=== PATIENT | male | born 1980 | race Caucasian/White ===

== ENCOUNTER 2017-01-26 04:58 | Inpatient (IN) | payer OTHER ==
[2017-01-26] MEDS ORDERED: NS 1,000 ML IV ONE ×2 (05:05→05:34)
--- NOTE | 2017-01-26 05:10 | EDPHY ---
H & P HPI/ROS: HPI CHIEF COMPLAINT: Syncope while urinating HISTORY OF PRESENT ILLNESS: Patient is a very pleasant 36-year-old male, presents emergency room by EMS after he had a syncopal episode at home. Patient states that he felt a cramp in his right calf this woke him from sleep he decided to get up and use the bathroom. He walked to the bathroom and was urinating and felt very lightheaded. He denies dizziness, denies chest pain or shortness of breath. Denies palpitations. [place] like he was going to pass out and then subsequently did. He did strike his head and his left ear, additionally has pain the left hand from fall. He thinks he struck the counter. He additionally reports midline low cervical spine pain C6-C7 region. He denies any focal numbness or tingling or weakness. He denies chest pain or shortness of breath. He states he now feels fine. Of note patient reports that he is very healthy, he has a resting heart rate 35 -40. He states this is normal for him. He denies being ill recently. Denies nausea vomiting or diarrhea. Denies fever viral illness. States he had a normal day yesterday. He thinks he states well-hydrated yesterday. He has never had an episode of syncope. Past Medical History: Denies any medical problems. Past Surgical History: Denies any surgical history Social History: Denies daily use of drugs alcohol tobacco. Works at [employer]. Family History: Denies any family pertinent cardiac history premature cardiac , or cardiac arrhythmia ROS REVIEW OF SYSTEMS: A comprehensive 10 point review of systems is otherwise negative aside from elements mentioned in the history of present illness. Exam Constitutional appears well nontoxic, triage nursing summary reviewed, vital signs reviewed, awake/alert. Bradycardic Eyes normal conjunctivae and sclera, EOMI, PERRLA. HENT normal inspection, atraumatic, moist mucus membranes, no epistaxis, neck supple/ no meningismus, no raccoon eyes. Respiratory clear to auscultation bilaterally, normal breath sounds, no respiratory distress, no wheezing. Cardiovascular bradycardic, regular rhythm, no murmur, no edema, distal pulses normal. Gastrointestinal soft, non-tender, no rebound, no guarding, normal bowel sounds, no distension, no pulsatile mass. Genitourinary no CVA tenderness. Musculoskeletal no midline vertebral tenderness, full range of motion, no calf swelling, no tenderness of extremities, no meningismus, good pulses, neurovascularly intact. Skin pink, warm, & dry, no rash, skin atraumatic. Neurologic awake, alert and oriented x 3, AAOx3, moves all 4 extremities equally, motor intact, sensory intact, CN II-XII intact, normal cerebellar, normal vision, normal speech. Psychiatric normal mood/affect. Heme/Lymph/Immune no lymphadenopathy. Differential Diagnosis: Includes includes but is not limited to in a particular order micturition syncope, orthostatic hypertension leading to syncope, dehydration, electrolyte disturbance, cardiac arrhythmia, bradycardia leading to syncope. Medical Decision Making: Plan for patient IV establishment IV fluid bolus, check orthostatic vital signs, EKG, troponin, basic blood work, CT head and neck due to trauma and neck pain. X-ray of his left hand. And re-evaluate. Re-evaluation: EKG interpretation by me on record in [employer] system. Impression time of EKG 5:10 a.m., this is sinus bradycardia rate of 36. First-degree AV block NJ interval 213. LVH present. I do not appreciate acute ischemic change on this EKG. 0537: Re-evaluated the patient was called by the nurse to come and see him as he feels lightheaded again. His blood pressure is currently 88 /38. This is while he is sitting up. Not on his side. Heart rate is 36. Given the hypotension you will get a 2nd L fluid at this time. We will closely monitor blood pressure and heart rate. He has not had another syncopal episode he did get lightheaded with this blood pressure this low. Of note he has been sick he denies any fever recent illness. He appears otherwise well nontoxic. 0621: Spoke with Dr. Aaron Gonzalez, reviewed the EKG at 610, Believes this to be A/V Weichbach. Mobitz Type 1. 0632: Rhythm strip reviewed by myself. I believe this is Mobitz type 1. Will plan on admitting the patient to the hospital for bradycardia symptomatic in the setting of hypotension and syncope. Will have Cardiology see this patient. 0638: Spoke Dr. Rosalie Harrison who agrees to admit. Additionally does this patient has a positive troponin. He denies any chest pain or shortness of breath. He has not had a viral illness. Will admit him for trauma tree monitoring, for bradycardia positive troponin will have Cardiology see him. Will need an echocardiogram. ED x-ray of the left hand reviewed by myself. No fracture. ED x-ray chest one view I do not appreciate cardiomegaly or pulmonary infiltrate. Unremarkable chest x-ray reviewed by me. Source: Patient, EMS Constitutional: Initial Vital Signs Temperature (C) 36.3 C 01/26/17 05:03 Heart Rate 38 L 01/26/17 05:03 Respiratory Rate 14 01/26/17 05:03 Blood Pressure 116/43 L 01/26/17 05:03 O2 Sat (%) 100 01/26/17 05:03 O2 Delivery Mode Room Air Allergies/Adverse Reactions: No Known Allergies Allergy (Unverified 01/26/17 05:07) Home Medications: Medication Instructions Recorded NK [No Known Home Meds] 01/26/17 Medical Decision Making - Data Points Laboratory Results: Laboratory Results 01/26/17 05:30 01/26/17 05:30 Medications Given: Discontinued Medications Sodium Chloride (Ns) 1,000 mls @ 0 mls/hr IV EDNOW ONE; Wide Open PRN Reason: Protocol Stop: 01/26/17 05:06 Last Admin: 01/26/17 05:32 Dose: 1,000 mls Sodium Chloride (Ns) 1,000 mls @ 0 mls/hr IV ONCE ONE PRN Reason: Wide Open Stop: 01/26/17 05:35 Last Admin: 01/26/17 05:36 Dose: 1,000 mls Lidocaine HCl (Lidocaine Hcl 1%) 0 - 300 mg SC ONCALL ONE Stop: 01/27/17 16:31 Last Admin: 01/27/17 16:50 Dose: Not Given Departure - Departure Disposition: [facility] In[facility] Acute Clinical Impression: Bradycardia Syncope Qualifiers: Syncope type: unspecified Qualified Code(s): R55 - Syncope and collapse Fall Qualifiers: Encounter type: initial encounter Qualified Code(s): W19.XXXA - Unspecified fall, initial encounter Hand contusion Qualifiers: Encounter type: initial encounter Laterality: left Qualified Code(s): S60.222A - Contusion of left hand, initial encounter Condition: Good
--- NOTE | 2017-01-26 05:15 | CPEKG ---
Heart Rate: 36 RR Interval: 1667 P-R Interval: 213 QRSD Interval: 98 QT Interval: 568 QTC Interval: 440 P [place]: -31 QRS [place]: 46 T Wave [place]: 28 EKG Severity - ABNORMAL ECG - EKG Impression: SINUS BRADYCARDIA EKG Impression: PROBABLE LEFT VENTRICULAR HYPERTROPHY EKG Impression: ANTEROLATERAL INFARCT, RECENT Electronically Signed By: Gualberto Lyon 26-Jan-2017 19:48:46
[2017-01-26 05:39] LABS: % IMMATURE GRANULYOCYTES 0.1 % (0.0-1.1); ABSOLUTE IMMATURE GRANULOCYTES 0.01 10^3/uL (0.00-0.10); ADD DIFF? NO; ADD MORPH? NO; ADD SCAN? NO; ATYPICAL LYMPHOCYTE FLAG 0 (0-99); FRAGMENT RBC FLAG 0 (0-99); HEMATOCRIT 43.9 % (40.0-51.0); HEMOGLOBIN 15.4 g/dL (13.7-17.5); LEFT SHIFT FLG 0 (0-99); LIPEMIA HEMOLYSIS FLAG 90 (0-99); MEAN CELL HEMOGLOBIN 29.8 pg (27.9-34.1); MEAN CELL HEMOGLOBIN CONCENTR. 35.1 g/dL (32.4-36.7); MEAN CELL VOLUME 85.1 fL (81.5-99.8); MEAN PLATELET VOLUME 9.3 fL (8.7-11.7); PLATELET CLUMPS FLAG 0 (0-99); PLATELET COUNT 203 10^3/uL (150-400); RED BLOOD CELL COUNT 5.16 10^6/uL (4.40-6.38); RED CELL DISTRIBUTION WIDTH 12.5 % (11.5-15.2)
[2017-01-26 05:48] LABS: PROTIME(PATIENT) 13.4 SEC (12.0-15.0)
[2017-01-26 05:49] LABS: APTT 22.7 SEC (23.0-38.0)
[2017-01-26 06:09] LABS: ALANINE AMINOTRANSFERASE 44 IU/L (21-72); ALBUMIN 3.9 g/dL (3.5-5.0); ALKALINE PHOSPHATASE 60 IU/L (38-126); ANION GAP 12 mEq/L (8-16); ASPARTATE AMINOTRANSFERASE 31 IU/L (17-59); BILIRUBIN,TOTAL 0.6 mg/dL (0.1-1.4); BILIRUBIN-CONJUGATED 0.2 mg/dL (0.0-0.5); BILIRUBIN-UNCONJUGATED 0.4 mg/dL (0.0-1.1); CALCIUM 9.4 mg/dL (8.5-10.4); CARBON DIOXIDE 28 mEq/l (22-31); CHLORIDE 103 mEq/L (97-110); CREATININE 1.2 mg/dL (0.7-1.3); GLOMERULAR FILTRATION RATE > 60; GLUCOSE 107 mg/dL (70-100); MAGNESIUM 1.8 mg/dL (1.6-2.3); POTASSIUM 3.9 mEq/L (3.5-5.2); SODIUM 143 mEq/L (134-144); TOTAL PROTEIN 6.7 g/dL (6.3-8.2)
[2017-01-26 06:21] LABS: TROPONIN I 0.075 ng/mL (0.000-0.034)
[2017-01-26] MEDS ORDERED: diphenhydrAMINE 25 MG CAP PO PRN (06:40)
[2017-01-26] MEDS ORDERED: HYDROmorphONE/DILAUDID 1 MG/ML INJ IVP PRN (06:40)
[2017-01-26] MEDS ORDERED: ACETAMINOPHEN 325 MG TAB PO PRN (06:40)
[2017-01-26] MEDS ORDERED: ONDANSETRON 4 MG/2 ML VIAL IVP PRN (06:40)
[2017-01-26] MEDS ORDERED: NS 1,000 ML IV SCH (06:45)
--- NOTE | 2017-01-26 08:17 | CPEKG ---
Heart Rate: 43 RR Interval: 1395 QRSD Interval: 96 QT Interval: 580 QTC Interval: 491 P [place]: -35 QRS [place]: 53 T Wave [place]: 30 EKG Severity - ABNORMAL ECG - EKG Impression: COMPLETE AV BLOCK, A-RATE 46 EKG Impression: PROBABLE LEFT VENTRICULAR HYPERTROPHY EKG Impression: ANTEROLATERAL INFARCT, RECENT EKG Impression: PROLONGED QT INTERVAL Electronically Signed By: Gualberto Lyon 26-Jan-2017 19:48:46
--- NOTE | 2017-01-26 08:19 | GHP ---
[f rep st] HISTORY AND PHYSICAL DATE OF ADMISSION: 01/26/2017 SOURCE: The patient provides history, appears reliable. His , who is a family court justice , is at bedside, also supplements details. Case discussed with the ED provider. CHIEF COMPLAINT: Syncope. HISTORY OF PRESENT ILLNESS: This is a pleasant, 36-year-old gentleman with no significant past medic al history, who is otherwise healthy with the exception of reporting a resting heart rate in the 30s to 40s, who presents to the emergency department today following a syncopal episode at home. Patient states that he woke up in the middle of night with a severe right calf cramp which he has intermitte ntly on either left or right leg. The patient denies any chest pain, palpitations. He does think he had a little bit of lightheadedness before he passed out. He thinks he struck the right side of his face on the bathroom counter before falling to the ground. The patient was otherwise in his usual [facility] with a recent viral type illness approximately 3 weeks ago, but no recent fevers, chil ls, shortness of breath, cough, or other complaints. The patient's heard the patient fall to th e floor and tried to open the small bathroom door. However, patient had fallen behind the door and i t took a few minutes before she was able to open the door and check for pulses. At that point, the p atient was starting to wake up and she thinks he may have been unconscious for 1-2 minutes. EMS was called. The patient arrived to the emergency department. The patient was noted to be bradycardic, i n the low to mid 30s. He also had a transient low blood pressure from the 110s down to the 80 systol ic. Orthostatic blood pressures were negative. The patient did not have any hypoxia. REVIEW OF SYSTEMS: Remainder of the review of systems is significant for left hand pain and limited range of motion with swelling, particularly in the 4th left digit. The patient reports some swelling and decreased range of motion. Injury to right face. NEURO: The patient denies any seizure activi ty. denies noting any tonic-clonic activity. The patient did have his left wrist angulated whe n she found him in the bathroom, but again no tonic or clonic activity was noted. No bladder or dajuan l incontinence. Review of systems negative except as noted above. ALLERGIES: No known drug allergies. MEDICATIONS: Patient does not take any prescription or dcwd-dal-zyycybn medications or supplements. PAST MEDICAL HISTORY: Overall unremarkable. The patient does report a resting heart rate in the mid to low 30s. PAST SURGICAL HISTORY: Patient had right hand surgery. FAMILY HISTORY: Patient denies any cardiac disease. No diabetes, hypertension. SOCIAL HISTORY: Patient currently employed at . 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 He does not smoke or do drugs. He drinks rare alcohol, last use was a month ago. No illicit drugs or marijuana use. CODE STATUS: Full. to be proxy if needed. PHYSICAL EXAMINATION: VITAL SIGNS: Upon arrival to the emergency department, initially blood pressu re 116/43, heart rate 38, respiratory rate 14, O2 sat 100% on room air with temperature 36.3. Orthos tatic blood pressures reviewed in EMR and without significant elevation in blood pressure or heart ra te. The patient with a transient systolic blood pressure in the 80s and lowest heart rate in the low 30s. Current vital signs at time of interview, blood pressure was 124/76, heart rate 46, respirator y rate 16, O2 sat 100% on room air. GENERAL: No acute distress. Very pleasant adult gentleman is s itting up comfortably in bed. His is at bedside. HEENT: Head normocephalic, atraumatic. EYES : Extraocular muscles grossly intact. Pupils equal, round, reactive to light bilaterally and symmet dylan. No scleral icterus or conjunctival injection. ENT: Mucous membranes are moist. No oropharyng eal erythema or exudates. NECK: Supple. Trachea midline. CV: Bradycardic in the 30s to 40s. Limi adriane exam secondary to the heart rate, but no appreciable murmurs or rubs or gallops. RESPIRATORY: L ungs are clear to auscultation bilaterally. No wheezes, rales, or rhonchi appreciated, unlabored patt athing. ABDOMEN: Positive bowel sounds, soft, nontender to palpation. No rebound, guarding or mass es. : No Gotti in place. No suprapubic tenderness to palpation. EXTREMITIES: The patient moves all extremities. He does have some decreased range of motion in the cushion padder of the left hand and some swelling at the proximal 4th digit. The patient also with some decreased capillary refill. NEURO: Cranial nerves grossly intact. No facial drooping. Patient awake, alert, and oriented x4. PSYCH: W ithout any anxiety or agitation. Thought process, content and questions are appropriate. LABORATORY STUDIES: WBC 6.80, hemoglobin and hematocrit 15.4 and 43.9, MCV of 85.1, platelet count i s 203, no bands. PT is 13.4, INR is 1.00, PTT is 22.7. D-dimer 0.44. Sodium is 143, potassium 3.9, chloride is 103, CO2 is 28, anion gap 12, BUN 27, creatinine 1.2, GFR greater than 60, glucose 107, calcium 9.4, magnesium 1.8, total bilirubin 0.6, conjugated bilirubin 0.2, ALT 44, AST is 31, alkalin e phosphatase is 60. CK is pending. Troponin 0.075. BTNP is 50. Total protein 6.7, albumin 3.9. STUDIES: EKG reviewed myself, shows sinus bradycardia in the 30s, probable LVH with second-degree AV block. QTc is 440. Q-waves in the anterolateral leads. Chest x-ray: Image reviewed myself, report is still pending. Appears clear. No acute infiltrates o r processes. Cervical spine CT: Preliminary report negative for fracture. CT head without contrast: Final report pending. Reported normal. No fractures, no bleeds. Hand x-ray: No fracture or dislocation. Reviewed with patient and his at bedside. ASSESSMENT AND PLAN: A very pleasant 36-year-old gentleman who presents following a syncopal episode and bradycardia with some hypotension. 1. Syncope. The patient has evidence of a second-degree AV block Mobitz type 1. Cardiology was con sulted from the emergency department. They have reviewed the EKG. Will evaluate the patient this mo rning. An echocardiogram has been ordered. Patient will be monitored continuously on telemetry. Re assured the patient and particularly his that services available here at the hospital include Ca rdiology and no acute need for transfer. The patient currently evaluated with stable vital signs. N o need for urgent consultation which has already been discussed and case reviewed with Cardiology. T he patient to notify nursing if he develops any lightheadedness, chest pain or shortness of breath or changes in his symptoms. 2. Elevated troponin. Etiology for this slight rise is unclear. The patient was hypotensive with a significant bradycardia. He also had a syncopal episode or suspicion for acute coronary syndrome as patient is without any chest pain, could be stress induced following a syncopal episode or related t o his above. Will trend and repeat later this morning. 3. Hypotension, transiently improved. The patient without symptoms reported during that episode. Joseph jimenez has received IV fluid supplementation. Will continue IV supplementation through the day. 4. Left hand pain related to patient's syncopal episode and injury. No evidence of fracture on the x-ray. Supportive care, ice p.r.n. and Tylenol. 5. Head injury related to syncope. CT head and neck were negative for any acute fractures and no bl eed on CT head. Patient denies any acute pain at this time. 6. Leg cramping. Will check electrolytes and replace if needed. If patient continues to have compl aints of lower extremity cramping, may consider evaluating iron studies on an outpatient basis. 7. Fluid, electrolyte, nutrition. Patient will be made n.p.o. until he is evaluated by Cardiology a t this time. We will continue with IV fluids for supplementation given patient's recent low blood pr essure. His BUN is also slightly increased. He reports staying well hydrated. 8. Prophylaxis. SCDs. Holding anticoagulation at this time. Patient overall is low risk for DVT. 9. Code status is full. to be MD HURTADO if needed. 10. Disposition: Patient has been admitted to inpatient status given the 2nd degree block and need for further workup. /[id number]/MODL
--- NOTE | 2017-01-26 08:34 | ECHO ---
[email or web address] [address] [address] Main: [phone] Fax: [email or web address] Echocardiogram Name: RHODA PARIKH MR#: [id number] Study Date: 01/26/2017 Study Time: 07:36 AM Date of : 1980 Age: 36 year(s) Height: 177.8 cm (70 in.) Weight: 74.84 kg (165 lb.) BSA: 1.92 m2 Gender: Male Examination: Echo Indication: Syncope/bradycardia/mobitz 1 Image Quality: Contrast: Requested by: Rosalie Harrison BP: 122 mmHg/66 mmHg Heart Rate: Rhythm: Indication: Syncope/bradycardia/mobitz 1 Procedure Staff Supervising Film Or Videotape Editor: Davina Marquez Reading Physician: Piero Vera Requesting Provider: Conclusions: Moderately dilated left ventricle. The ejection fraction is estimated to be 65-70 %. Normal size right ventricle. The left atrium is mildly dilated. The right atrium is moderately dilated. Bicuspid aortic valve. Moderate aortic valve regurgitation is present. No aortic valve stenosis is present. The pulmonary artery pressure is normal. Mildly dilated ascending aorta measuring 4.6 cm. Measurements: Chambers Valvular Assessment AV/MV Valvular Assessment TV/PV Normal Normal Normal Name Value Range Name Value Range Name Value Range Ao Roseann (MM): 3.7 cm (2.2 cm-3.7 AV Vmax: 1.88 m/s (1 m/s-1.7 TR Vmax: 2.22 mm/s ( - ) cm) m/s) TR PGmax: 20 mmHg ( - ) IVSd (2D): 1.0 cm (0.6 cm-1.1 AV maxP mmHg ( - ) syst. PAP: 25 mmHg ( - ) cm) AV meanP mmHg ( - ) LVDd (2D): 6.5 cm (4.2 cm-5.9 AR (PHT): 679 ms ( - ) cm) MV E Vmax: 1.07 m/s ( - ) LVDs (2D): 4.3 cm (2.1 cm-4 MV A Vmax: 0.50 m/s ( - ) cm) MV E/A: 2.14 ( - ) LVPWd (2D): 0.9 cm (0.6 cm-1 cm) LVEF (MOD4): 66 % (>=55 %) EF Range: 65-70 % Continued Measurements: Chambers Valvular Assessment AV/MV Valvular Assessment TV/PV Patient: RHODA PARIKH Study Date: 01/26/2017 Page 1 of 2 07:36 AM Name Value Name Value Name Value LADs: 4.0 cm MV E/E' Septal: 13.50 CVP (est.): 5 mmHg LADs Lon.2 cm MV E/E' Lateral: 8.90 LA Area: 22.3 cm2 AR Vmax: 4.26 cm/s TAPSE: 2.7 cm Additional Vessels Name Value Ao Ascendin.6 cm Inferior Vena Cava: 1.8 cm Findings: Left Ventricle: Moderately dilated left ventricle. No LV hypertrophy. Normal global systolic LV function. The ejection fraction is estimated to be 65-70 %. No regional wall motion abnormality. Right Ventricle: Normal size right ventricle. Normal RV function. Left Atrium: The left atrium is mildly dilated. Normal appearing atrial septum. Right Atrium: The right atrium is moderately dilated. Mitral Valve: The mitral valve is normal in appearance and function. Trivial mitral valve regurgitation. Aortic Valve: Bicuspid aortic valve. Moderate aortic valve regurgitation is present. No aortic valve stenosis is present. Tricuspid Valve: The tricuspid valve is normal in appearance and function. Mild tricuspid regurgitation is present. The pulmonary artery pressure is normal. Pulmonic Valve: The pulmonic valve is normal in appearance and function. Trivial pulmonic valve regurgitation. Aorta: The aorta is normal. Mildly dilated ascending aorta measuring 4.6 cm. Pericardium: No pericardial effusion. (No Signature Object) Patient: RHODA PARIKH Study Date: 01/26/2017 Page 2 of 2 07:36 AM [id number]
[2017-01-26] MEDS ORDERED: IOPAMIDOL (ISOVUE 370) 100 ML BTL IV ONE (08:36)
[2017-01-26 12:43] LABS: C-REACTIVE PROTEIN < 5.0 mg/L (<10.0)
--- NOTE | 2017-01-26 12:54 | PDMN ---
Medical Necessity Medical necessity: Patient meets inpatient criteria per physician note and [facility] Cardiology GRG vs Supraventricular Arrhythmias (syncopal episode w/bradycardia into the 30's and initial hypotension; 2nd degree AV block, Mobitz type 1 on EKG , troponins elevated; anticipated LOS > 2 midnights for ongoing bradycardia into the 30's; elevated troponins, cardiology consult, continued IV fluids while NPO for poss interventions.)
--- NOTE | 2017-01-26 17:04 | HOSPPROG ---
Hospitalist Progress Note Assessment/Plan: Syncope - This may have been a vagal event with the micturitional history. 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 Also consider volume depletion / orthostasis as a factor. EKG showed Type 1 Mobitz / Wenkebach, likely benign. Sinus dior on telemetry, personally reviewed and interpreted. Discussed with Dr. Marie. 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 No e/o dissection. -outpt f/u Moderate AR - congenital bicuspid valve. cards is following. Elevated troponin - ?demand ischemia in setting of bradycardia / strain. Trop is flat with slight decline from 0.08 to 0.07. He is chest pain free. Doubt ACS. -cont to trend Full code Dispo - 0bs Subjective: Pt feels well. No CP, SOB, dizziness, or palpitations. Objective: Vital Signs Temp Pulse Resp BP Pulse Ox 36.6 C 45 L 14 119/62 94 01/26/17 16:34 01/26/17 16:34 01/26/17 16:34 01/26/17 16:34 01/26/17 16:34 01/25/17 01/26/17 01/27/17 05:59 05:59 05:59 Intake Total 1999 Balance 1999 PT 13.4 SEC (12.0-15.0) 01/26/17 05:30 INR 1.00 (0.83-1.16) 01/26/17 05:30 - Physical Exam Constitutional: no apparent distress Eyes: PERRL Ears, Nose, Mouth, Throat: moist mucous membranes Cardiovascular: regular rate and rhythym, systolic murmur Respiratory: no respiratory distress Gastrointestinal: normoactive bowel sounds, soft, non-tender abdomen Skin: warm Musculoskeletal: full muscle strength Neurologic: AAOx3 Psychiatric: interacting appropriately ICD10 Worksheet Patient Problems: Problems Problem Status Onset Bradycardia Acute Fall Acute Hand contusion Acute Syncope Acute
--- NOTE | 2017-01-26 17:11 | GCON ---
[f rep st] CONSULTATION CARDIOLOGY CONSULTATION DATE OF CONSULTATION: 01/26/2017 CHIEF COMPLAINT: Syncope. HISTORY OF PRESENT ILLNESS: We were asked by Dr. Tolentino to visit with the patient. The patient is a healthy 36-year-old male with no known cardiovascular history. He does have a history of vasovaga l syncope in the past. He was in his usual state of good health yesterday. Early this morning he wo ke up in the middle of the night with a leg cramp. He then got up to urinate. After urinating, he h ad sudden onset of a sensation of lightheadedness and then had syncope in the bathroom. His was able to get to him quickly and by then he was arousable. He did not have incontinence or any tongue biting. EMS was called and he was transported to the emergency department. In the department, he was bradycardic with some episodes of junctional escape and some episodes of si nus bradycardia, as well as periods of type 1 second-degree heart block. Troponin was borderline sonal vated at 0.07 and, therefore, he is being admitted for further observation. The patient denies preceding chest pain or ongoing chest pain at the moment. He denied shortness of breath or palpitations. He did have a viral infection 2 or 3 weeks ago, but has been otherwise feeli ng well. No significant alcohol intake, normal p.o., no illicit drugs. REVIEW OF SYSTEMS: A full 10-point review of systems was performed and was negative, except that whi ch is outlined in the history of present illness. ALLERGIES: No known drug allergies. PAST MEDICAL HISTORY: None of note up until today when he was diagnosed with bicuspid aortic valve o n echocardiogram and ascending aortic dilation. OUTPATIENT MEDICATIONS: None. SOCIAL HISTORY: The patient is and his is at the bedside. They have a 6-month-old daug hter. He is a digital computer operator at . He does not smoke cigarettes. He drinks alcohol in moderation. He denies illicit drugs or use of significant [id number] supplementation. FAMILY HISTORY: Negative for premature coronary disease or sudden cardiac . PHYSICAL EXAMINATION: VITAL SIGNS: Initial blood pressure was 116/43, then dropped to 88/38, and rrently 120/78. Heart rate has been in the 30s to 50s. Oxygen saturation is 97% on room air. Respi ratory rate is 16. GENERAL: Well-appearing young male, in no acute distress. HEENT: Sclerae clear and free of jaundice. Mucous membranes moist. CARDIOVASCULAR: JVP is less than 10. Carotids equa l and 2+ without bruit. Regular rate and rhythm with a 2/6 holosystolic murmur at the left lower christine rnal border and at the apex. LUNGS: Clear to auscultation bilaterally without wheezes, rhonchi, or rales. ABDOMEN: Soft, nontender, nondistended. No bruits, masses, or hepatosplenomegaly. EXTREMIT IES: Warm, well perfused without cyanosis, clubbing, or edema. NEURO: Alert and oriented x3 withou t gross focal neurologic deficits. LABORATORY DATA: CBC is normal. D-dimer negative. INR normal. Comprehensive metabolic panel jeff l except for BUN of 27, glucose of 107, and troponin 0.075 and 0.08. CK 116. Serial EKGs reviewed by me. Sinus bradycardia, some type 1 second-degree AV block, some junctional e scape. No ischemic ST abnormalities. Echocardiogram reviewed by me, moderately dilated left ventricle with normal LV systolic function. R V is normal in size and systolic function. The aortic valve is bicuspid with at least moderate, if n ot moderately to severe, aortic regurgitation. Ascending aorta is dilated at 4.[address] of the aorta reviewed by me and discussed with Dr. Rubio, shows aneurysmal dilation of the ascendi ng aorta, 4.4 cm. No dissection. No pericardial effusion. ASSESSMENT AND PLAN: A 36-year-old male with previously undiagnosed bicuspid aortic valve and ascend ing aortic aneurysm. He presents with syncope that is most likely vasovagal in origin, triggered by nocturnal urination. He does have bradycardia, but his baseline heart rate is slow due to his fitnes s and there is no evidence of high-degree arteriovenous block on multiple tracings. 1. Syncope: Likely vasovagal. Doubt aortic pathology or acute coronary syndrome as an etiology. H owever, because his troponin is minimally elevated, he will be admitted for observation and serial tr oponins as well as telemetry monitoring. No indication for pacing at the current time. Continue flu id resuscitation. Discussion about mitigation of vagal triggers was reviewed with the patient and hi s . 2. Bicuspid aortic valve with at least moderate or moderately severe aortic regurgitation: He does not appear to be in heart failure. We will check BNP. He will require close echocardiographic surve illance and screening of first-degree relatives. 3. Minimally positive troponin: This may just be related to his hypotension. He did have a viral s yndrome a few weeks ago. No evidence of pericardial effusion or symptoms consistent with perimyocard itis. We will check CRP and ESR. Could consider CT coronary angiogram depending on his clinical cou rse. No wall motion abnormalities on echocardiogram. EKG is nonischemic. 4. Ascending aortic aneurysm: No evidence of dissection based on CT. This will need to be followed closely. We will discuss with Dr. Bernard Rubio as well. Thank you for allowing us to participate in the patient's care. We will follow with you. /[id number]/MODL
[2017-01-27 02:43] VITALS: O2SAT 94
[2017-01-27 07:58] LABS: % IMMATURE GRANULYOCYTES 0.1 % (0.0-1.1); ABSOLUTE IMMATURE GRANULOCYTES 0.01 10^3/uL (0.00-0.10); ADD DIFF? NO; ADD MORPH? NO; ADD SCAN? NO; ATYPICAL LYMPHOCYTE FLAG 0 (0-99); FRAGMENT RBC FLAG 0 (0-99); HEMATOCRIT 45.6 % (40.0-51.0); HEMOGLOBIN 15.7 g/dL (13.7-17.5); LEFT SHIFT FLG 0 (0-99); LIPEMIA HEMOLYSIS FLAG 90 (0-99); MEAN CELL HEMOGLOBIN 29.6 pg (27.9-34.1); MEAN CELL HEMOGLOBIN CONCENTR. 34.4 g/dL (32.4-36.7); MEAN CELL VOLUME 85.9 fL (81.5-99.8); MEAN PLATELET VOLUME 9.3 fL (8.7-11.7); PLATELET CLUMPS FLAG 0 (0-99); PLATELET COUNT 208 10^3/uL (150-400); RED BLOOD CELL COUNT 5.31 10^6/uL (4.40-6.38); RED CELL DISTRIBUTION WIDTH 12.6 % (11.5-15.2)
[2017-01-27] MEDS ORDERED: IOPAMIDOL (ISOVUE 370) 100 ML BTL IV ONE (08:15)
[2017-01-27 08:18] LABS: ANION GAP 10 mEq/L (8-16); CALCIUM 9.9 mg/dL (8.5-10.4); CARBON DIOXIDE 29 mEq/l (22-31); CHLORIDE 105 mEq/L (97-110); CREATININE 1.2 mg/dL (0.7-1.3); GLOMERULAR FILTRATION RATE > 60; GLUCOSE 92 mg/dL (70-100); POTASSIUM 4.5 mEq/L (3.5-5.2); SODIUM 144 mEq/L (134-144)
--- NOTE | 2017-01-27 09:30 | ASMTCMCOM ---
CM Note CM Note Notes: 01/27/2017 Case Management Note Reviewed chart, spoke w/RN. There are no case management d/c needs identified d/t pt age, marital status, employment status and activity levels prior to admission. There are no PT or OT evals ordered at this time. Case Management d/c poc: Home independent with follow up as directed. Case Management available if needs change. Date Signed: 01/27/2017 09:30 AM Electronically Signed By:Chey Medina RN
--- NOTE | 2017-01-27 10:40 | HOSPPROG ---
Hospitalist Progress Note Assessment/Plan: New patient encounter 36 yo male with hx of bradycardia attributed to endurance conditioning admitted with syncopal episode with unclear etiology. Syncope/Bradycardia: -This may have been a vagal event with the micturitional history. 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 -HR on telemetry has been as mid 26 while the patient is sleeping -Also consider volume depletion / orthostasis as a factor. -EKG showed Type 1 Mobitz / Wenkebach, likely benign. -Sinus dior on telemetry, personally reviewed and interpreted. -needs outpt cardiac event monitor -Reports a familial component. His father was diagnosed with syncopal episodes of unclear etiology in his 40's. Aneurysmal dilation of the descending aorta (new diagnosis) - 4.4 cm. No e/o dissection. -outpt f/u Moderate AR, new diagnosis - congenital bicuspid valve. cards is following. Elevated troponin - ?demand ischemia in setting of bradycardia / strain. Trop is flat with slight decline from 0.08 to 0.07. He is chest pain free. Doubt ACS. -cont to trend Full code Dispo: -Cards to see today -Awaiting result of CT Angio with Carotid Calcium -HR is the 20's overnight, unclear etiology -will await cards reccs, dispo pending reccs -will need OP ECHO surveillance for moderate AR and bicuspid valve -will need OP Cards f/u for Aneurysmal Dilitation of descending aorta -will need OP cardiac rn Subjective: HR in the 20's overnight. Not symptomatic. NO CP or SOB. No further syncopal episodes. Objective: Vital Signs Temp Pulse Resp BP Pulse Ox 36.8 C 45 L 14 107/52 L 94 01/27/17 07:04 01/27/17 07:04 01/27/17 07:04 01/27/17 07:04 01/27/17 07:04 Laboratory Results 01/27/17 07:47 01/27/17 07:47 01/26/17 01/27/17 01/28/17 05:59 05:59 05:59 Intake Total 1999 Balance 1999 PT 13.4 SEC (12.0-15.0) 01/26/17 05:30 INR 1.00 (0.83-1.16) 01/26/17 05:30 - Physical Exam Constitutional: no apparent distress Eyes: PERRL, EOMI Ears, Nose, Mouth, Throat: moist mucous membranes, hearing normal Cardiovascular: regular rate and rhythym, no murmur, rub, or gallop, No JVD, No edema Respiratory: no respiratory distress, no rales or rhonchi, clear to auscultation Gastrointestinal: normoactive bowel sounds, soft, non-tender abdomen Genitourinary: no bladder fullness Skin: warm Musculoskeletal: full muscle strength, No generalized weakness Neurologic: AAOx3 Psychiatric: interacting appropriately, not anxious, not encephalopathic ICD10 Worksheet Patient Problems: Problems Problem Status Onset Bradycardia Acute Fall Acute Hand contusion Acute Syncope Acute
[2017-01-27 11:57] VITALS: BP 123/53; PULSE 41; RESP 18; TEMP 98.2
--- NOTE | 2017-01-27 13:56 | PDCARPN ---
Cardiology Progress Note Chief Complaint: syncope Assessment/Plan: Assessment: Jesus is a 36 y/o M with a history of vasovagal syncope who was admitted with syncope post urinating. He woke in the middle of the night and walked into the bathroom. After urinating he become lightheaded and had a true syncopal event. In the ER he was bradycardic with junctional escape and 2nd degree AVB type 1. He was also hypotensive. A echo showed a bicuspid AV with mod-severe AR and dilated ascending aorta of 4.[address] was negative for aortic dissection. He then had a coronary CTA secondary to elevated troponin which was negative. Plan: Syncope- likely vasovagal. He has been bradycardic with frequent junctional rhythm at night time. 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 He will have a Linq today to assess for ventricular arrhythmias and cardioinhibitory syncope. mildly elevated trop- normal coronary CTA. His trop is likely elevated due to prolonged hypotension. bicuspid AV with mod-severe AR and dilated ascending aortic aneurysm- Pt is scheduled for a consultation with Dr. Rubio. He should avoid vigorous physical activity. He is not a candidate for BB therapy secondary to bradycardia and hypotension. He can be d/c home after his Linq this afternoon 01/27/17 13:57 Subjective: Pt denies any fatigue, lightheadedness, or dizziness. Objective: Vital Signs (8 Hrs) Temp Pulse Resp BP Pulse Ox 01/27/17 11:56 36.8 C 41 L 18 123/53 H 94 01/27/17 07:04 36.8 C 45 L 14 107/52 L 94 Intake/Output (24 Hrs) 01/26/17 01/27/17 01/28/17 05:59 05:59 05:59 Intake Total 1999 Balance 1999 Intake: IV Infused (ml) 1999 Other: Weight 76.8 kg Intake Quantity Yes Sufficient tele-NSR with bradycardia and junctional rhythm Result Diagrams: 01/27/17 07:47 01/27/17 07:47 Cardiac Labs: Cardiac Lab Results (72 Hrs) 01/26/17 01/26/17 01/26/17 18:45 12:09 07:55 Troponin I 0.076 H 0.070 H 0.080 H - Physical Exam Constitutional: WDWN Cardiovascular: regular rate and rhythm Skin: no edema Neurologic: AAOx3 ICD10 Worksheet Patient Problems: Problems Problem Status Onset Bradycardia Acute Fall Acute Hand contusion Acute Syncope Acute
--- NOTE | 2017-01-27 15:21 | PDDCSUM ---
Discharge Summary Discharge Summary: 36 yo male with hx of bradycardia attributed to endurance conditioning admitted with syncopal episode. Please see H/P for complete details. He was consulted by Cardiology They have set him up for a Linq's and after this is done today he is cleared for d/c. He will f/u with them He will f/u with Dr. Rubio for discussion about the ascending aortic aneurysm no strenuous exercise until f/u Discharge Diagnosis: #Syncope/Bradycardia: -This may have been a vagal event with the micturitional history. 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 -HR on telemetry has been as mid 26 while the patient is sleeping -Also consider volume depletion / orthostasis as a factor. -EKG showed Type 1 Mobitz / Wenkebach, likely benign. -Sinus dior on telemetry, personally reviewed and interpreted. -needs outpt cardiac event monitor, he has been set up with Linqs -Reports a familial component. His father was diagnosed with syncopal episodes of unclear etiology in his 40's. Aneurysmal dilation of the ascending aorta (new diagnosis) - 4.4 cm. No e/o dissection. -outpt f/u with Dr. Rubio -not a candidate for BB due to bradycardia Moderate AR, new diagnosis - congenital bicuspid valve. cards is following. will need OP surveillance echos. Elevated troponin - ?demand ischemia in setting of bradycardia / strain. Trop is flat with slight decline from 0.08 to 0.07. He is chest pain free. Doubt ACS. -cont to trend -likely due to prolonged hypotension Exam: Please see note from today d/c meds: see med rec f/u: per above total time spend on discharge is 40 minutes
[2017-01-27] MEDS ORDERED: LIDOCAINE 1% 300 MG/30 ML SDV SC ONE ×2 (16:20→16:30)
--- NOTE | 2017-01-28 15:07 | ASDISCHSUM ---
Discharge Information Plan Status:Home with No Needs Medically Cleared to Leave:01/26/2017 Discharge Date:01/27/2017 05:35 PM CM D/C Disposition: ADT D/C Disposition:Home, Routine, Self-Care Projected Discharge Date:01/27/2017 12:00 AM Transportation at D/C: Discharge Delay Reason: Follow-Up Date:01/27/2017 12:00 AM Discharge Slot: Final Diagnosis: Placement Information Patient Contact Information Contact Name:SIN Relationship: Address:[address] Work Phone: City:[place] Alternate Phone: [facility]/[place] Code:[place] [address] Email: Financial Information Financial Class:HMO and PPO Plans Primary Plan Desc:EVER PPO [employer] Primary Plan Number:[id number] Secondary Plan Desc: Secondary Plan Number: Assessment Information BC CM Progress Note CM Note CM Note Notes: 01/27/2017 Case Management Note Reviewed chart, spoke w/RN. There are no case management d/c needs identified d/t pt age, marital status, employment status and activity levels prior to admission. There are no PT or OT evals ordered at this time. Case Management d/c poc: Home independent with follow up as directed. Case Management available if needs change. Date Signed: 01/27/2017 09:30 AM Electronically Signed By:Chey Medina RN Intervention Information
== END 2017-01-27 17:35 | disposition home or self-care (01) | DRG 259 ==
LOC: F2W 11:30
PROVIDERS: ADMIT Family Medicine; ATTEND Family Medicine
PROC: 0JH60PZ Insertion of Cardiac Rhythm Related Device into Chest Subcutaneous Tissue and Fascia, Open Approach (ICD-10-PCS; principal; 2017-01-27)
DX: R55 Syncope and collapse (principal); Q23.1 Congenital insufficiency of aortic valve; R00.1 Bradycardia, unspecified; S60.222A Contusion of left hand, initial encounter; I71.2 Thoracic aortic aneurysm, without rupture; I44.1 Atrioventricular block, second degree; W18.39XA Other fall on same level, initial encounter; Y93.E8 Activity, other personal hygiene; Y92.012 Bathroom of single-family (private) house as the place of occurrence of the external cause
CPT/HCPCS: C1764; Q9967

== ENCOUNTER → 2017-08-27 | Outpatient (CLI) | payer OTHER ==
[~2017-08-27] MED LIST: IOPAMIDOL (ISOVUE-300) 100 ML BTL ONE
== END ==
LOC: FIMAGING 09:36
PROVIDERS: ATTEND Thoracic Surgery (Cardiothoracic Vascular Surgery)
DX: I77.810 Thoracic aortic ectasia (principal)
CPT/HCPCS: Q9967